=== PATIENT | male | born 2005 | race Two or more races ===

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

== ENCOUNTER 2025-03-08 10:33 | Emergency (ER) | payer SELFPAY | END 2025-03-08 11:48 | disposition home or self-care (01) | LOC: JD.ED 10:33 | DX: N35.919 Unspecified urethral stricture, male, unspecified site (principal) | CPT/HCPCS: 99283 ==